=== PATIENT | female | born 1970 | race African-American/Black ===

== ENCOUNTER 2016-11-22 14:16 | Inpatient (IN) | payer MEDICAID ==
[~2016-11-22] VITALS: Ht 170.2 cm; Wt 80.7 kg
[~2016-11-22 14:16] MED LIST: CALC667C PO; DILT180C3 PO; HYDR-523 PO; LOSA25TA3 PO; METO-396 PO; METO50TA5 PO
[2016-11-22 15:29] LABS: BASOPHILS % 0.2 % (0.0-2.0); EOSINOPHILS % 1.8 % (0.0-5.0); HEMATOCRIT. 38.1 % (36.0-48.0); HEMOGLOBIN. 12.5 g/dL (12.0-16.0); LYMPHOCYTES % 9.3 % (20.0-50.0); MEAN CORPUSCULAR VOLUME 100.2 fL (81.0-99.0); MEAN PLATELET VOLUME 8.4 fl (7.4-10.4); MONOCYTES % 10.7 % (2.0-8.0); PLATELET 142 x1000/uL (130-400); RED CELL DISTRIBUTION WIDTH 17.1 % (11.6-14.6)
[2016-11-22 15:33] LABS: CHLORIDE 98 mEq/L (98-107); INR 1.2; PROTHROMBIN TIME 12.5 sec (9.4-11.6)
[2016-11-22 15:36] LABS: CARBON DIOXIDE 21 mEq/L (21-32)
[2016-11-22 15:50] LABS: TROPONIN I 0.85 ng/mL (0.00-0.04)
[2016-11-22] MEDS ORDERED: HYDROCODONE/ACETAMINOPHEN 5/325MG TABLET PO ONE (17:00)
[2016-11-22] MEDS ORDERED: KETOROLAC 30MG/ML VIAL IV ONE (17:45)
[2016-11-22 21:58] VITALS: BP 110/84
[2016-11-22 22:03] VITALS: BP 110/84
[2016-11-22] MEDS ORDERED: DEXTROSE 50% WATER 50ML SYRINGE IV PRN (22:45)
[2016-11-23 00:05] VITALS: BP 112/85
[2016-11-23 04:00] VITALS: BP 111/81
[2016-11-23] MEDS: HYDROCODONE/ACETAMINOPHEN 5/325MG TABLET PO PRN (04:50)
[2016-11-23] MEDS: BLOOD SUGAR DIAGNOSTIC STRIP TEST SCH ×4 (07:40→21:00)
[2016-11-23 08:00] VITALS: BP 110/80
[2016-11-23] MEDS: INSULIN LISPRO 100 UNITS/ML SUBCUT SCH ×4 (08:10→21:00)
[2016-11-23] MEDS: CALCIUM ACETATE 667MG CAPSULE PO SCH ×3 (08:51→18:47)
[2016-11-23] MEDS: LOSARTAN POTASSIUM 25 MG TABLET PO SCH (08:53)
[2016-11-23] MEDS: METOPROLOL TARTRATE 50MG TABLET PO SCH ×2 (08:53→21:00)
[2016-11-23] MEDS: DILTIAZEM HCL 180MG CAPSULE CD 24HR PO SCH (08:53)
[2016-11-23] MEDS: MORPHINE SULFATE 2 MG/ML CPJ (NOT FOR IM USE) IV PRN ×3 (10:07→18:52)
[2016-11-23 12:00] VITALS: BP 113/85
[2016-11-23] MEDS ORDERED: REGADENOSON 0.4 MG/5 ML IV NR (12:45)
[2016-11-23 20:00] VITALS: BP 111/57
[2016-11-23] MEDS: IPRATROPIUM/ALBUTEROL 0.5-3(2.5)MG/3ML NEB HHN PRN (20:38)
[2016-11-23] MEDS ORDERED: RISP0.5T19 PO (21:05)
[2016-11-23] MEDS ORDERED: PROMETHAZINE LIQUID 6.25MG/5ML 118ML PO PRN (21:30)
[2016-11-23] MEDS: RISPERIDONE 0.5MG TABLET PO SCH (22:12)
[2016-11-24] VITALS: BP 113/84
[2016-11-24] MEDS: IPRATROPIUM/ALBUTEROL 0.5-3(2.5)MG/3ML NEB HHN PRN ×2 (00:30→04:42)
[2016-11-24] MEDS: MORPHINE SULFATE 2 MG/ML CPJ (NOT FOR IM USE) IV PRN ×2 (03:53→09:40)
[2016-11-24 04:00] VITALS: BP 115/88
[2016-11-24 06:39] LABS: BASOPHILS % 0.8 % (0.0-2.0); EOSINOPHILS % 4.5 % (0.0-5.0); HEMATOCRIT. 38.1 % (36.0-48.0); HEMOGLOBIN. 12.4 g/dL (12.0-16.0); LYMPHOCYTES % 8.1 % (20.0-50.0); MEAN CORPUSCULAR VOLUME 101.2 fL (81.0-99.0); MEAN PLATELET VOLUME 8.6 fl (7.4-10.4); NEUTROPHILS % 75.6 % (40.0-76.0); PLATELET 119 x1000/uL (130-400); RED BLOOD CELL COUNT 3.76 mill/uL (4.2-5.4); RED CELL DISTRIBUTION WIDTH 17.5 % (11.6-14.6)
[2016-11-24] MEDS: BLOOD SUGAR DIAGNOSTIC STRIP TEST SCH ×4 (07:40→20:41)
[2016-11-24 07:41] LABS: CREATINE KINASE MB FRACTION 9.6 ng/mL (0.5-3.6); TROPONIN I 0.36 ng/mL (0.00-0.04)
[2016-11-24 08:00] VITALS: BP 95/63
[2016-11-24] MEDS: INSULIN LISPRO 100 UNITS/ML SUBCUT SCH ×4 (08:10→20:44)
[2016-11-24] MEDS ORDERED: REGADENOSON 0.4 MG/5 ML IV ONE (08:20)
[2016-11-24] MEDS: LOSARTAN POTASSIUM 25 MG TABLET PO SCH (09:00)
[2016-11-24] MEDS: METOPROLOL TARTRATE 50MG TABLET PO SCH ×2 (09:00→20:41)
[2016-11-24] MEDS: DILTIAZEM HCL 180MG CAPSULE CD 24HR PO SCH (09:00)
[2016-11-24] MEDS: RISPERIDONE 0.5MG TABLET PO SCH ×2 (09:41→16:19)
[2016-11-24] MEDS: CALCIUM ACETATE 667MG CAPSULE PO SCH ×3 (09:41→18:10)
[2016-11-24 12:00] VITALS: BP 116/80
[2016-11-24 14:43] LABS: CLARITY URINE CLEAR (CLEAR); COLOR URINE YELLOW (YELLOW); GLUCOSE URINE TRACE (NEGATIVE); KETONES URINE NEGATIVE (NEGATIVE); LEUKOCYTE ESTERASE URINE NEGATIVE (NEGATIVE); NITRITE URINE NEGATIVE (NEGATIVE); OCCULT BLOOD URINE NEGATIVE (NEGATIVE); PH URINE >=9.0 (4.5-8.0); PROTEIN URINE NEGATIVE (NEGATIVE); SPECIFIC GRAVITY URINE 1.007 (1.005-1.030); UROBILINOGEN URINE 0.2 E.U./dL (0.2-1.0)
[2016-11-24 15:15] LABS: *AMPHETAMINES SCREEN URINE NEGATIVE (NEGATIVE); *BARBITURATES SCREEN URINE NEGATIVE (NEGATIVE); *BENZODIAZEPINES SCREEN URINE NEGATIVE (NEGATIVE); *COCAINE SCREEN URINE NEGATIVE (NEGATIVE); CANNABINOID URINE SCREEN NEGATIVE (NEGATIVE); METHADONE URINE SCREEN NEGATIVE (NEGATIVE); OPIATES URINE SCREEN NEGATIVE (NEGATIVE); PHENCYCLIDINE URINE SCREEN NEGATIVE (NEGATIVE)
[2016-11-24 16:00] VITALS: BP 95/58
[2016-11-24] MEDS: HYDROCODONE/ACETAMINOPHEN 5/325MG TABLET PO PRN ×2 (16:18→22:35)
[2016-11-24 20:00] VITALS: BP 95/66
[2016-11-24] MEDS: CYCLOBENZAPRINE 10MG TABLET PO PRN (23:12)
[2016-11-25] VITALS (7 sets, daily range): BP systolic 86–123; BP diastolic 48–82
[2016-11-25] MEDS: BLOOD SUGAR DIAGNOSTIC STRIP TEST SCH ×2 (06:59→21:45)
[2016-11-25] MEDS: METOPROLOL TARTRATE 50MG TABLET PO SCH ×2 (09:22→21:00)
[2016-11-25] MEDS: LOSARTAN POTASSIUM 25 MG TABLET PO SCH (09:22)
[2016-11-25] MEDS: CALCIUM ACETATE 667MG CAPSULE PO SCH ×2 (09:25→15:38)
[2016-11-25] MEDS: DILTIAZEM HCL 180MG CAPSULE CD 24HR PO SCH (09:30)
[2016-11-25] MEDS: MORPHINE SULFATE 2 MG/ML CPJ (NOT FOR IM USE) IV PRN ×2 (09:30→15:39)
[2016-11-25] MEDS: RISPERIDONE 0.5MG TABLET PO SCH ×2 (09:38→17:09)
[2016-11-25] MEDS: PROMETHAZINE LIQUID 6.25MG/5ML 118ML PO SCH ×2 (16:00→22:13)
[2016-11-25] MEDS: INSULIN LISPRO 100 UNITS/ML SUBCUT SCH (21:00)
[2016-11-26] VITALS (13 sets, daily range): BP systolic 72–101; BP diastolic 45–73
[2016-11-26] MEDS: PROMETHAZINE LIQUID 6.25MG/5ML 118ML PO SCH ×4 (05:14→22:06)
[2016-11-26] MEDS: BLOOD SUGAR DIAGNOSTIC STRIP TEST SCH ×4 (05:25→20:43)
[2016-11-26] MEDS ORDERED: SODIUM CHLORIDE 0.9% 500 ML IV NR (06:00)
[2016-11-26 06:12] LABS: HEMATOCRIT. 39.6 % (36.0-48.0); HEMOGLOBIN. 12.7 g/dL (12.0-16.0); LYMPHOCYTES % 12.5 % (20.0-50.0); MEAN CORPUSCULAR HEMOGLOBIN 32.5 pg (28.0-32.0); MEAN CORPUSCULAR VOLUME 101.2 fL (81.0-99.0); MEAN PLATELET VOLUME 9.1 fl (7.4-10.4); MONOCYTES % 11.1 % (2.0-8.0); NEUTROPHILS % 69.4 % (40.0-76.0); PLATELET 120 x1000/uL (130-400); RED BLOOD CELL COUNT 3.91 mill/uL (4.2-5.4); RED CELL DISTRIBUTION WIDTH 17.5 % (11.6-14.6)
[2016-11-26] MEDS ORDERED: MIDODRINE HCL 5MG TABLET PO SCH (08:00)
[2016-11-26] MEDS ORDERED: SODIUM CHLORIDE 0.9% 500 ML IV SCH (08:00)
[2016-11-26] MEDS: INSULIN LISPRO 100 UNITS/ML SUBCUT SCH ×4 (08:10→20:43)
[2016-11-26] MEDS: RISPERIDONE 0.5MG TABLET PO SCH ×2 (08:53→16:04)
[2016-11-26] MEDS: CALCIUM ACETATE 667MG CAPSULE PO SCH ×4 (08:53→17:24)
[2016-11-26] MEDS: METOPROLOL TARTRATE 50MG TABLET PO SCH (08:55)
[2016-11-26] MEDS: DILTIAZEM HCL 180MG CAPSULE CD 24HR PO SCH (08:56)
[2016-11-26] MEDS: LOSARTAN POTASSIUM 25 MG TABLET PO SCH (08:56)
[2016-11-26] MEDS: MIDODRINE HCL 5MG TABLET PO SCH ×2 (13:00→16:03)
[2016-11-26] MEDS ORDERED: HEPARIN SODIUM 1,000 UNIT/1ML VIAL IV SCH (14:45)
[2016-11-26] MEDS: HYDROCODONE/ACETAMINOPHEN 5/325MG TABLET PO PRN (20:51)
[2016-11-27] VITALS (7 sets, daily range): BP systolic 81–102; BP diastolic 56–72
[2016-11-27] MEDS: PROMETHAZINE LIQUID 6.25MG/5ML 118ML PO SCH ×4 (05:21→22:00)
[2016-11-27] MEDS: BLOOD SUGAR DIAGNOSTIC STRIP TEST SCH ×4 (05:24→21:00)
[2016-11-27 05:56] LABS: BASOPHILS % 0.7 % (0.0-2.0); EOSINOPHILS % 4.9 % (0.0-5.0); HEMATOCRIT. 39.9 % (36.0-48.0); LYMPHOCYTES % 11.3 % (20.0-50.0); MEAN CORPUSCULAR HEMOGLOBIN 33.1 pg (28.0-32.0); MEAN CORPUSCULAR VOLUME 101.6 fL (81.0-99.0); MEAN PLATELET VOLUME 8.5 fl (7.4-10.4); MONOCYTES % 13.7 % (2.0-8.0); NEUTROPHILS % 69.4 % (40.0-76.0); PLATELET 97 x1000/uL (130-400); RED BLOOD CELL COUNT 3.93 mill/uL (4.2-5.4); RED CELL DISTRIBUTION WIDTH 17.3 % (11.6-14.6)
[2016-11-27] MEDS: INSULIN LISPRO 100 UNITS/ML SUBCUT SCH ×4 (08:10→21:00)
[2016-11-27] MEDS: MIDODRINE HCL 5MG TABLET PO SCH ×3 (08:38→17:35)
[2016-11-27] MEDS: RISPERIDONE 0.5MG TABLET PO SCH ×2 (08:38→17:34)
[2016-11-27] MEDS: CALCIUM ACETATE 667MG CAPSULE PO SCH ×3 (08:39→17:34)
[2016-11-27] MEDS: HYDROCODONE/ACETAMINOPHEN 5/325MG TABLET PO PRN (15:42)
[2016-11-27] MEDS ORDERED: DIGOXIN 500MCG/2ML AMP IV NR (19:45)
[2016-11-27] MEDS: SODIUM CHLORIDE 0.9% 250 ML IV NR ×2 (19:52→22:15)
[2016-11-27] MEDS: IPRATROPIUM/ALBUTEROL 0.5-3(2.5)MG/3ML NEB HHN PRN (21:18)
[2016-11-28] VITALS (10 sets, daily range): BP systolic 92–129; BP diastolic 58–75
[2016-11-28 06:00] LABS: HEMATOCRIT. 39.9 % (36.0-48.0); HEMOGLOBIN. 12.9 g/dL (12.0-16.0); MEAN CORPUSCULAR HEMOGLOBIN 32.9 pg (28.0-32.0); MEAN CORPUSCULAR VOLUME 101.3 fL (81.0-99.0); MEAN PLATELET VOLUME 9.2 fl (7.4-10.4); PLATELET 111 x1000/uL (130-400); RED BLOOD CELL COUNT 3.94 mill/uL (4.2-5.4); RED CELL DISTRIBUTION WIDTH 17.3 % (11.6-14.6)
[2016-11-28] MEDS: BLOOD SUGAR DIAGNOSTIC STRIP TEST SCH ×2 (07:26→11:55)
[2016-11-28] MEDS: INSULIN LISPRO 100 UNITS/ML SUBCUT SCH ×2 (07:26→11:55)
[2016-11-28] MEDS: MIDODRINE HCL 5MG TABLET PO SCH ×3 (08:54→16:48)
[2016-11-28] MEDS: CYCLOBENZAPRINE 10MG TABLET PO PRN (08:54)
[2016-11-28] MEDS: RISPERIDONE 0.5MG TABLET PO SCH ×2 (08:54→16:48)
[2016-11-28] MEDS: PROMETHAZINE LIQUID 6.25MG/5ML 118ML PO SCH ×2 (08:56→16:48)
[2016-11-28] MEDS: CALCIUM ACETATE 667MG CAPSULE PO SCH ×3 (08:59→16:49)
[2016-11-28] MEDS: LIDOCAINE 5% PATCH TOP SCH (11:28)
[2016-11-28] MEDS: IPRATROPIUM/ALBUTEROL 0.5-3(2.5)MG/3ML NEB HHN PRN ×2 (12:04→18:13)
[2016-11-28] MEDS: HYDROCODONE/ACETAMINOPHEN 5/325MG TABLET PO PRN ×2 (13:40→17:48)
[2016-11-28 16:49] LABS: HCG SCREEN NEGATIVE
[2016-11-28 23:08] LABS: NUCLEATED RED BLOOD CELLS 2 /100 WBC; PLATELET ESTIMATE SLIGHTLY DECREASED
[2016-11-29] VITALS: BP 99/66
[2016-11-29] MEDS: PROMETHAZINE LIQUID 6.25MG/5ML 118ML PO SCH ×5 (00:10→23:10)
[2016-11-29 04:00] VITALS: BP 106/74
[2016-11-29 08:10] VITALS: BP 99/63
[2016-11-29] MEDS: RISPERIDONE 0.5MG TABLET PO SCH ×2 (08:17→17:43)
[2016-11-29] MEDS: MIDODRINE HCL 5MG TABLET PO SCH ×3 (08:18→17:43)
[2016-11-29] MEDS: LIDOCAINE 5% PATCH TOP SCH (08:18)
[2016-11-29] MEDS: CALCIUM ACETATE 667MG CAPSULE PO SCH ×3 (08:18→17:43)
[2016-11-29 12:00] VITALS: BP 106/77
[2016-11-29] MEDS: HYDROCODONE/ACETAMINOPHEN 5/325MG TABLET PO PRN ×2 (13:41→20:36)
[2016-11-29 16:00] VITALS: BP 110/71
[2016-11-29] MEDS: IPRATROPIUM/ALBUTEROL 0.5-3(2.5)MG/3ML NEB HHN PRN (18:03)
[2016-11-29 20:13] VITALS: BP_SYST 114; BP_SYST 118; BP_SYST 96; BP_DIAS 61; BP_DIAS 82; BP_DIAS 85
[2016-11-30] VITALS: BP 94/65
[2016-11-30 04:00] VITALS: BP 118/84
[2016-11-30] MEDS: PROMETHAZINE LIQUID 6.25MG/5ML 118ML PO SCH ×3 (05:49→17:28)
[2016-11-30 06:26] LABS: HEMATOCRIT. 38.4 % (36.0-48.0); HEMOGLOBIN. 12.5 g/dL (12.0-16.0); MEAN CORPUSCULAR HEMOGLOBIN 33.1 pg (28.0-32.0); MEAN CORPUSCULAR VOLUME 101.9 fL (81.0-99.0); MEAN PLATELET VOLUME 9.3 fl (7.4-10.4); PLATELET 106 x1000/uL (130-400); RED BLOOD CELL COUNT 3.77 mill/uL (4.2-5.4); RED CELL DISTRIBUTION WIDTH 17.2 % (11.6-14.6)
[2016-11-30 08:00] VITALS: BP_SYST 102; BP_SYST 116; BP_SYST 120; BP_DIAS 67; BP_DIAS 86; BP_DIAS 90
[2016-11-30] MEDS: CYCLOBENZAPRINE 10MG TABLET PO PRN (09:05)
[2016-11-30] MEDS: RISPERIDONE 0.5MG TABLET PO SCH ×2 (09:05→17:27)
[2016-11-30] MEDS: CALCIUM ACETATE 667MG CAPSULE PO SCH ×3 (09:05→17:27)
[2016-11-30] MEDS: MIDODRINE HCL 5MG TABLET PO SCH ×3 (09:06→17:28)
[2016-11-30] MEDS: LIDOCAINE 5% PATCH TOP SCH (09:10)
[2016-11-30] MEDS: HYDROCODONE/ACETAMINOPHEN 5/325MG TABLET PO PRN (09:17)
[2016-11-30 12:00] VITALS: BP 121/90
[2016-11-30] MEDS: MORPHINE SULFATE 2 MG/ML CPJ (NOT FOR IM USE) IV PRN ×2 (12:56→18:21)
[2016-11-30 16:00] VITALS: BP 103/74
[2016-11-30 20:00] VITALS: BP 119/82
[2016-11-30 22:20] LABS: PLATELET ESTIMATE DECREASED
[2016-12-01] VITALS: BP 113/78
[2016-12-01] MEDS: PROMETHAZINE LIQUID 6.25MG/5ML 118ML PO SCH ×5 (00:06→23:43)
[2016-12-01] MEDS: IPRATROPIUM/ALBUTEROL 0.5-3(2.5)MG/3ML NEB HHN PRN (00:25)
[2016-12-01] MEDS: MORPHINE SULFATE 2 MG/ML CPJ (NOT FOR IM USE) IV PRN ×2 (00:35→06:35)
[2016-12-01 04:00] VITALS: BP 108/85
[2016-12-01 05:38] LABS: HEMATOCRIT. 41.3 % (36.0-48.0); HEMOGLOBIN. 13.3 g/dL (12.0-16.0); MEAN CORPUSCULAR HEMOGLOBIN 32.8 pg (28.0-32.0); MEAN CORPUSCULAR VOLUME 101.6 fL (81.0-99.0); MEAN PLATELET VOLUME 8.5 fl (7.4-10.4); PLATELET 115 x1000/uL (130-400); RED BLOOD CELL COUNT 4.06 mill/uL (4.2-5.4); RED CELL DISTRIBUTION WIDTH 16.9 % (11.6-14.6)
[2016-12-01 08:00] VITALS: BP 102/84
[2016-12-01] MEDS: LIDOCAINE 5% PATCH TOP SCH ×2 (09:00→09:10)
[2016-12-01] MEDS: MIDODRINE HCL 5MG TABLET PO SCH ×3 (09:09→17:58)
[2016-12-01] MEDS: RISPERIDONE 0.5MG TABLET PO SCH ×2 (09:09→17:58)
[2016-12-01] MEDS: CALCIUM ACETATE 667MG CAPSULE PO SCH ×3 (09:09→17:58)
[2016-12-01] MEDS ORDERED: DIGOXIN 500MCG/2ML AMP IV NR (11:25)
[2016-12-01] MEDS: HYDROCODONE/ACETAMINOPHEN 5/325MG TABLET PO PRN ×2 (11:46→19:00)
[2016-12-01 12:00] VITALS: BP 105/65
[2016-12-01 13:20] LABS: PLATELET ESTIMATE SLIGHTLY DECREASED
[2016-12-01] MEDS: DILTIAZEM HCL 60MG TABLET PO SCH ×2 (14:00→20:57)
[2016-12-01 20:00] VITALS: BP 122/77
[2016-12-01 20:20] VITALS: BP_SYST 105; BP_SYST 99; BP_DIAS 57; BP_DIAS 69
[2016-12-02 00:05] VITALS: BP 105/74
[2016-12-02 04:00] VITALS: BP 115/73
[2016-12-02] MEDS: DILTIAZEM HCL 60MG TABLET PO SCH (05:25)
[2016-12-02] MEDS: PROMETHAZINE LIQUID 6.25MG/5ML 118ML PO SCH ×2 (05:26→12:46)
[2016-12-02] MEDS: HYDROCODONE/ACETAMINOPHEN 5/325MG TABLET PO PRN (05:36)
[2016-12-02 06:28] LABS: HEMATOCRIT. 35.8 % (36.0-48.0); HEMOGLOBIN. 11.8 g/dL (12.0-16.0); MEAN CORPUSCULAR HEMOGLOBIN 32.9 pg (28.0-32.0); MEAN CORPUSCULAR VOLUME 99.6 fL (81.0-99.0); MEAN PLATELET VOLUME 9.3 fl (7.4-10.4); PLATELET 124 x1000/uL (130-400); RED BLOOD CELL COUNT 3.59 mill/uL (4.2-5.4); RED CELL DISTRIBUTION WIDTH 16.7 % (11.6-14.6)
[2016-12-02 07:12] LABS: CHLAMYDIA TRACHOMATIS NAA Negative (Negative); NEISSERIA GONORRHOEAE NAA Negative (Negative)
[2016-12-02 08:41] VITALS: BP 92/57
[2016-12-02] MEDS: CALCIUM ACETATE 667MG CAPSULE PO SCH ×2 (08:42→12:46)
[2016-12-02] MEDS: RISPERIDONE 0.5MG TABLET PO SCH (08:43)
[2016-12-02] MEDS: MIDODRINE HCL 5MG TABLET PO SCH ×2 (08:43→12:46)
[2016-12-02] MEDS: LIDOCAINE 5% PATCH TOP SCH (08:43)
[2016-12-02] MEDS ORDERED: CYCL10TA7 PO (11:24)
[2016-12-02] MEDS ORDERED: LIDO700A30 TOP (11:24)
[2016-12-02] MEDS ORDERED: RISP05 PO (11:24)
[2016-12-02] MEDS ORDERED: [UNRECOGNIZED DRUG - OTHER] PO (11:24)
[2016-12-02] MEDS ORDERED: CALC667C PO (11:24)
[2016-12-02] MEDS ORDERED: MIDO5TAB PO (11:24)
[2016-12-02] MEDS ORDERED: DILT120C11 PO (11:24)
[2016-12-02 12:00] VITALS: BP 113/65
[2016-12-02 12:09] VITALS: BP 113/65
[2016-12-02] MEDS: CYCLOBENZAPRINE 10MG TABLET PO PRN (13:29)
[2016-12-02 13:57] LABS: PLATELET ESTIMATE SLIGHTLY DECREASED
== END 2016-12-02 13:50 | disposition home or self-care (01) | DRG 190 ==
LOC: ER 15:34 → 7WST 17:06 → ENRESERV 18:40
PROVIDERS: ADMIT Internal Medicine; ATTEND Internal Medicine
PROC: 5A1D60Z (ICD-10-PCS; principal; 2016-11-23)
DX: I21.4 Non-ST elevation (NSTEMI) myocardial infarction (principal); J96.00 Acute respiratory failure, unspecified whether with hypoxia or hypercapnia; I50.33 Acute on chronic diastolic (congestive) heart failure; N17.9 Acute kidney failure, unspecified; I95.9 Hypotension, unspecified; E11.22 Type 2 diabetes mellitus with diabetic chronic kidney disease; N18.6 End stage renal disease; I27.2 Other secondary pulmonary hypertension; I13.2 Hypertensive heart and chronic kidney disease with heart failure and with stage 5 chronic kidney disease, or end stage renal disease; I47.1 Supraventricular tachycardia; E87.5 Hyperkalemia; E66.9 Obesity, unspecified; M51.36 Other intervertebral disc degeneration, lumbar region; E78.00 Pure hypercholesterolemia, unspecified; F17.210 Nicotine dependence, cigarettes, uncomplicated; N89.8 Other specified noninflammatory disorders of vagina; F31.9 Bipolar disorder, unspecified; Z99.2 Dependence on renal dialysis; Z79.899 Other long term (current) drug therapy; Z90.49 Acquired absence of other specified parts of digestive tract; Z68.27 Body mass index [BMI] 27.0-27.9, adult; Z71.6 Tobacco abuse counseling
CPT/HCPCS: 36415; 71010; 72148; 78452; 78582; 80048; 80053; 80061; 80305; 81001; 82550; 82553; 82962; 83690; 83735; 83880; 84443; 84484; 84703; 85025; 85379; 85610; 85730; 86140; 87070; 87081; 87086; 87491; 87591; 93005; 93017; 93306; 93970; 94640; 94664; 96374; 97110; 97116; 97162; 99285; A9500; A9558; J1160; J1644; J1885; J2270; J2785; J7030; J7040; J7620; Q0169

== ENCOUNTER 2016-12-17 09:56 | Inpatient (IN) | payer MEDICAID ==
[~2016-12-17] VITALS: Ht 167.6 cm; Wt 80.3 kg
[~2016-12-17 09:56] MED LIST changes: +CYCL10TA7 PO; +DILT120C11 PO; -DILT180C3 PO; +LIDO700A30 TOP; -LOSA25TA3 PO; -METO-396 PO; -METO50TA5 PO; +MIDO5TAB PO; +RISP05 PO; +[UNRECOGNIZED DRUG - OTHER] PO
[2016-12-17 10:41] LABS: BASOPHILS % 0.8 % (0.0-2.0); EOSINOPHILS % 4.4 % (0.0-5.0); HEMATOCRIT. 37.4 % (36.0-48.0); HEMOGLOBIN. 12.2 g/dL (12.0-16.0); LYMPHOCYTES % 25.9 % (20.0-50.0); MEAN CORPUSCULAR HEMOGLOBIN 32.3 pg (28.0-32.0); MEAN CORPUSCULAR VOLUME 99.1 fL (81.0-99.0); MEAN PLATELET VOLUME 7.5 fl (7.4-10.4); MONOCYTES % 12.9 % (2.0-8.0); PLATELET 114 x1000/uL (130-400); RED BLOOD CELL COUNT 3.78 mill/uL (4.2-5.4); RED CELL DISTRIBUTION WIDTH 17.1 % (11.6-14.6)
[2016-12-17 10:48] LABS: INR 1.1
[2016-12-17 10:58] LABS: CARBON DIOXIDE 26 mEq/L (21-32); CHLORIDE 100 mEq/L (98-107); TROPONIN I 0.06 ng/mL (0.00-0.04)
[2016-12-17 11:53] LABS: HCG SCREEN NEGATIVE
[2016-12-17] MEDS ORDERED: ACETAMINOPHEN WITH CODEINE 300/30MG TABLET PO ONE (12:00)
[2016-12-17] MEDS ORDERED: IBUPROFEN 600MG TABLET PO PRN (12:30)
[2016-12-17] MEDS ORDERED: ACETAMINOPHEN 325MG TABLET PO PRN ×2 (12:30→17:30)
[2016-12-17 15:25] VITALS: BP 130/100
[2016-12-17 15:29] VITALS: BP 130/100
[2016-12-17] MEDS: MORPHINE SULFATE 4 MG/ML CPJ (NOT FOR IM USE) IV PRN ×2 (15:48→23:54)
[2016-12-17 16:00] VITALS: BP 124/94
[2016-12-17] MEDS ORDERED: CYCLOBENZAPRINE 10MG TABLET PO PRN (17:30)
[2016-12-17] MEDS ORDERED: ONDANSETRON HCL 4MG/2ML VIAL IV PRN (17:30)
[2016-12-17] MEDS: DILTIAZEM HCL 120MG CAPSULE SR 12HR PO SCH (18:36)
[2016-12-17] MEDS: CALCIUM ACETATE 667MG CAPSULE PO SCH (18:36)
[2016-12-17] MEDS ORDERED: DEXTROSE 50% WATER 50ML SYRINGE IV PRN (18:45)
[2016-12-17] MEDS ORDERED: DIPHENHYDRAMINE 50MG/ML VIAL IV NR (18:45)
[2016-12-17] MEDS ORDERED: PROMETHAZINE LIQUID 6.25MG/5ML 118ML PO PRN (19:00)
[2016-12-17 20:00] VITALS: BP 117/90
[2016-12-17] MEDS: DIPHENHYDRAMINE 50MG/ML VIAL IV PRN (20:34)
[2016-12-17] MEDS: INSULIN LISPRO 100 UNITS/ML SUBCUT SCH (20:40)
[2016-12-17] MEDS: BLOOD SUGAR DIAGNOSTIC STRIP TEST SCH (20:40)
[2016-12-18 00:22] VITALS: BP 124/97
[2016-12-18 04:00] VITALS: BP 123/91
[2016-12-18 05:41] LABS: BASOPHILS % 1.1 % (0.0-2.0); EOSINOPHILS % 6.2 % (0.0-5.0); HEMATOCRIT. 37.6 % (36.0-48.0); HEMOGLOBIN. 12.2 g/dL (12.0-16.0); LYMPHOCYTES % 23.7 % (20.0-50.0); MEAN CORPUSCULAR HEMOGLOBIN 32.7 pg (28.0-32.0); MEAN CORPUSCULAR VOLUME 100.8 fL (81.0-99.0); MEAN PLATELET VOLUME 8.7 fl (7.4-10.4); PLATELET 120 x1000/uL (130-400); RED BLOOD CELL COUNT 3.73 mill/uL (4.2-5.4); RED CELL DISTRIBUTION WIDTH 17.3 % (11.6-14.6)
[2016-12-18] MEDS: BLOOD SUGAR DIAGNOSTIC STRIP TEST SCH ×4 (07:02→21:00)
[2016-12-18] MEDS: INSULIN LISPRO 100 UNITS/ML SUBCUT SCH ×4 (07:50→21:00)
[2016-12-18 08:00] VITALS: BP 111/83
[2016-12-18] MEDS: LIDOCAINE 5% PATCH TOP SCH (09:00)
[2016-12-18] MEDS: DILTIAZEM HCL 120MG CAPSULE SR 12HR PO SCH (09:00)
[2016-12-18] MEDS: MIDODRINE HCL 5MG TABLET PO SCH ×3 (09:15→18:21)
[2016-12-18] MEDS: RISPERIDONE 0.5MG TABLET PO SCH ×2 (09:15→18:21)
[2016-12-18] MEDS: CALCIUM ACETATE 667MG CAPSULE PO SCH ×3 (09:16→18:21)
[2016-12-18] MEDS: MORPHINE SULFATE 4 MG/ML CPJ (NOT FOR IM USE) IV PRN ×2 (11:39→21:36)
[2016-12-18 12:00] VITALS: BP 109/58
[2016-12-18] MEDS: ALBUTEROL (0.083%) 2.5MG/3ML NEB HHN SCH ×2 (16:51→20:03)
[2016-12-18 18:02] VITALS: BP 119/79
[2016-12-18] MEDS: DIPHENHYDRAMINE 50MG/ML VIAL IV PRN (18:25)
[2016-12-18 20:00] VITALS: BP 123/80
[2016-12-18] MEDS: METHYLPREDNISOLONE SOD SUCC 125 MG/2 ML VIAL IV SCH (21:36)
[2016-12-19] VITALS: BP 126/83
[2016-12-19] MEDS: ALBUTEROL (0.083%) 2.5MG/3ML NEB HHN SCH ×6 (00:08→20:55)
[2016-12-19 04:00] VITALS: BP 111/75
[2016-12-19] MEDS: METHYLPREDNISOLONE SOD SUCC 125 MG/2 ML VIAL IV SCH ×3 (06:00→17:57)
[2016-12-19] MEDS: BLOOD SUGAR DIAGNOSTIC STRIP TEST SCH ×4 (06:39→21:30)
[2016-12-19 07:45] LABS: BASOPHILS % 0.8 % (0.0-2.0); EOSINOPHILS % 6.6 % (0.0-5.0); HEMATOCRIT. 34.5 % (36.0-48.0); HEMOGLOBIN. 11.1 g/dL (12.0-16.0); MEAN CORPUSCULAR HEMOGLOBIN 32.6 pg (28.0-32.0); MEAN CORPUSCULAR VOLUME 101.3 fL (81.0-99.0); MEAN PLATELET VOLUME 8.8 fl (7.4-10.4); MONOCYTES % 13.5 % (2.0-8.0); NEUTROPHILS % 62.1 % (40.0-76.0); PLATELET 92 x1000/uL (130-400); RED CELL DISTRIBUTION WIDTH 16.8 % (11.6-14.6)
[2016-12-19] MEDS: INSULIN LISPRO 100 UNITS/ML SUBCUT SCH ×4 (07:50→22:01)
[2016-12-19 08:00] VITALS: BP 112/79
[2016-12-19] MEDS: LIDOCAINE 5% PATCH TOP SCH (09:00)
[2016-12-19] MEDS: DILTIAZEM HCL 120MG CAPSULE SR 12HR PO SCH (09:29)
[2016-12-19] MEDS: RISPERIDONE 0.5MG TABLET PO SCH ×2 (09:29→17:53)
[2016-12-19] MEDS: MIDODRINE HCL 5MG TABLET PO SCH ×3 (09:29→17:57)
[2016-12-19] MEDS: CALCIUM ACETATE 667MG CAPSULE PO SCH ×3 (09:31→17:54)
[2016-12-19] MEDS: MORPHINE SULFATE 4 MG/ML CPJ (NOT FOR IM USE) IV PRN ×3 (09:36→21:50)
[2016-12-19 12:00] VITALS: BP 126/93
[2016-12-19] MEDS: DIPHENHYDRAMINE 50MG/ML VIAL IV PRN (15:15)
[2016-12-19 16:00] VITALS: BP 108/72
[2016-12-19 20:00] VITALS: BP 121/79
[2016-12-20] VITALS (7 sets, daily range): BP systolic 104–128; BP diastolic 71–87
[2016-12-20] MEDS: ALBUTEROL (0.083%) 2.5MG/3ML NEB HHN SCH ×7 (00:43→20:40)
[2016-12-20] MEDS: METHYLPREDNISOLONE SOD SUCC 125 MG/2 ML VIAL IV SCH ×3 (03:07→18:51)
[2016-12-20] MEDS: DIPHENHYDRAMINE 50MG/ML VIAL IV PRN ×2 (03:08→11:40)
[2016-12-20] MEDS: BLOOD SUGAR DIAGNOSTIC STRIP TEST SCH ×4 (06:47→21:30)
[2016-12-20 06:54] LABS: HEMOGLOBIN. 11.5 g/dL (12.0-16.0); MEAN CORPUSCULAR HEMOGLOBIN 32.3 pg (28.0-32.0); MEAN CORPUSCULAR VOLUME 101.4 fL (81.0-99.0); MEAN PLATELET VOLUME 8.8 fl (7.4-10.4); PLATELET 97 x1000/uL (130-400); RED BLOOD CELL COUNT 3.55 mill/uL (4.2-5.4); RED CELL DISTRIBUTION WIDTH 16.7 % (11.6-14.6)
[2016-12-20] MEDS: INSULIN LISPRO 100 UNITS/ML SUBCUT SCH ×4 (08:22→21:33)
[2016-12-20] MEDS: CALCIUM ACETATE 667MG CAPSULE PO SCH ×3 (08:32→17:33)
[2016-12-20] MEDS: MIDODRINE HCL 5MG TABLET PO SCH ×3 (08:32→17:29)
[2016-12-20] MEDS: RISPERIDONE 0.5MG TABLET PO SCH ×2 (08:32→17:07)
[2016-12-20] MEDS: DILTIAZEM HCL 120MG CAPSULE SR 12HR PO SCH (08:33)
[2016-12-20] MEDS: LIDOCAINE 5% PATCH TOP SCH (08:35)
[2016-12-20] MEDS: MORPHINE SULFATE 4 MG/ML CPJ (NOT FOR IM USE) IV PRN ×3 (08:51→21:20)
[2016-12-20 13:15] LABS: PLATELET ESTIMATE DECREASED
[2016-12-20] MEDS ORDERED: AZITHROMYCIN 500 MG TABLET PO SCH (14:30)
[2016-12-20 16:31] LABS: BG BASE EXCESS -0.6 mmol/L (-2.0-2.0); BG CARBOXYHEMOGLOBIN 0.3 % (0.5-1.5); BG DEOXYHEMOGLOBIN 16.8 % (0.0-5.0); BG HCO3 ACT 27.8 mmol/L (22.0-26.0); BG OXYGEN SATURATION 83.1 % (92.0-98.5); BG OXYHEMOGLOBIN 82.9 % (94.0-97.0); BG PCO2 63.7 mmHg (35.0-45.0); BG PH 7.257 (7.350-7.450); BG PO2 48.4 mmHg (75.0-100.0); BG SAMPLE SITE RIGHT RADIAL; BG TOTAL HEMOGLOBIN 12.3 g/dL (12.0-18.0); BG VENT MODE ROOM AIR
[2016-12-21] MEDS: ALBUTEROL (0.083%) 2.5MG/3ML NEB HHN SCH ×5 (01:17→21:35)
[2016-12-21] MEDS: METHYLPREDNISOLONE SOD SUCC 125 MG/2 ML VIAL IV SCH ×3 (02:04→17:01)
[2016-12-21 04:00] VITALS: BP 125/82
[2016-12-21] MEDS: MORPHINE SULFATE 4 MG/ML CPJ (NOT FOR IM USE) IV PRN ×2 (04:29→10:33)
[2016-12-21 06:06] LABS: HEMATOCRIT. 36.2 % (36.0-48.0); HEMOGLOBIN. 11.7 g/dL (12.0-16.0); MEAN CORPUSCULAR HEMOGLOBIN 32.8 pg (28.0-32.0); MEAN CORPUSCULAR VOLUME 101.6 fL (81.0-99.0); PLATELET 104 x1000/uL (130-400); RED BLOOD CELL COUNT 3.57 mill/uL (4.2-5.4)
[2016-12-21] MEDS: BLOOD SUGAR DIAGNOSTIC STRIP TEST SCH ×4 (06:38→21:28)
[2016-12-21] MEDS: CALCIUM ACETATE 667MG CAPSULE PO SCH ×3 (06:42→16:57)
[2016-12-21] MEDS: INSULIN LISPRO 100 UNITS/ML SUBCUT SCH ×4 (07:50→21:39)
[2016-12-21 08:00] VITALS: BP 115/85
[2016-12-21] MEDS: LIDOCAINE 5% PATCH TOP SCH ×2 (09:00→09:22)
[2016-12-21] MEDS: RISPERIDONE 0.5MG TABLET PO SCH ×2 (09:21→16:57)
[2016-12-21] MEDS: MIDODRINE HCL 5MG TABLET PO SCH ×3 (09:22→16:57)
[2016-12-21] MEDS: DILTIAZEM HCL 120MG CAPSULE SR 12HR PO SCH (09:22)
[2016-12-21] MEDS: AZITHROMYCIN 250 MG TABLET PO SCH (09:22)
[2016-12-21] MEDS ORDERED: SODIUM POLYSTYRENE SULFONATE 15 G/60 ML BOT PO SCH (09:30)
[2016-12-21] MEDS: DIPHENHYDRAMINE 50MG/ML VIAL IV PRN (10:33)
[2016-12-21] MEDS ORDERED: LIDOCAINE HCL/PF 1% 2ML VIAL ONE (11:44)
[2016-12-21 12:00] VITALS: BP 126/90
[2016-12-21] MEDS: IPRATROPIUM/ALBUTEROL 0.5-3(2.5)MG/3ML NEB HHN SCH (12:00)
[2016-12-21 12:35] LABS: BG BASE EXCESS -6.6 mmol/L (-2.0-2.0); BG CARBOXYHEMOGLOBIN 0.3 % (0.5-1.5); BG DEOXYHEMOGLOBIN 2.7 % (0.0-5.0); BG FRACTION INSPIRED OXYGEN 30; BG HCO3 ACT 22.5 mmol/L (22.0-26.0); BG METHEMOGLOBIN 0.3 % (0.0-1.5); BG OXYGEN SATURATION 97.3 % (92.0-98.5); BG OXYHEMOGLOBIN 96.7 % (94.0-97.0); BG PCO2 62.9 mmHg (35.0-45.0); BG PH 7.172 (7.350-7.450); BG PO2 110.5 mmHg (75.0-100.0); BG SAMPLE SITE RIGHT RADIAL; BG TOTAL HEMOGLOBIN 12.2 g/dL (12.0-18.0); BG VENT MODE NASAL CANNULA
[2016-12-21] MEDS: HYDROMORPHONE HCL/PF 2MG/ML CPJ IV PRN ×2 (15:55→21:39)
[2016-12-21 16:00] VITALS: BP 130/99
[2016-12-21 17:05] LABS: PLATELET ESTIMATE DECREASED
[2016-12-21 20:00] VITALS: BP 141/87
[2016-12-22] VITALS: BP 140/97
[2016-12-22] MEDS: ALBUTEROL (0.083%) 2.5MG/3ML NEB HHN SCH ×3 (00:58→08:00)
[2016-12-22] MEDS: METHYLPREDNISOLONE SOD SUCC 125 MG/2 ML VIAL IV SCH ×3 (02:46→17:28)
[2016-12-22] MEDS: HYDROMORPHONE HCL/PF 2MG/ML CPJ IV PRN ×2 (03:37→09:20)
[2016-12-22 04:00] VITALS: BP 138/99
[2016-12-22] MEDS ORDERED: LIDOCAINE HCL/PF 1% 2ML VIAL ONE (05:00)
[2016-12-22] MEDS: BLOOD SUGAR DIAGNOSTIC STRIP TEST SCH ×4 (06:31→20:59)
[2016-12-22 07:32] LABS: HEMATOCRIT. 36.9 % (36.0-48.0); HEMOGLOBIN. 11.8 g/dL (12.0-16.0); MEAN CORPUSCULAR HEMOGLOBIN 32.3 pg (28.0-32.0); MEAN CORPUSCULAR VOLUME 100.9 fL (81.0-99.0); MEAN PLATELET VOLUME 8.9 fl (7.4-10.4); PLATELET 124 x1000/uL (130-400); RED BLOOD CELL COUNT 3.66 mill/uL (4.2-5.4); RED CELL DISTRIBUTION WIDTH 16.5 % (11.6-14.6)
[2016-12-22] MEDS: INSULIN LISPRO 100 UNITS/ML SUBCUT SCH ×4 (07:50→21:14)
[2016-12-22 08:00] VITALS: BP 135/85
[2016-12-22] MEDS: IPRATROPIUM/ALBUTEROL 0.5-3(2.5)MG/3ML NEB HHN SCH ×4 (08:03→20:39)
[2016-12-22 08:59] LABS: BG CARBOXYHEMOGLOBIN 0.5 % (0.5-1.5); BG DEOXYHEMOGLOBIN 3.8 % (0.0-5.0); BG FRACTION INSPIRED OXYGEN 28; BG HCO3 ACT 25.3 mmol/L (22.0-26.0); BG METHEMOGLOBIN 0.5 % (0.0-1.5); BG OXYGEN SATURATION 96.2 % (92.0-98.5); BG OXYHEMOGLOBIN 95.2 % (94.0-97.0); BG PCO2 75.1 mmHg (35.0-45.0); BG PH 7.146 (7.350-7.450); BG PO2 99.6 mmHg (75.0-100.0); BG SAMPLE SITE RIGHT RADIAL; BG TOTAL HEMOGLOBIN 12.7 g/dL (12.0-18.0); BG VENT MODE NASAL CANNULA
[2016-12-22] MEDS: DILTIAZEM HCL 120MG CAPSULE CD 24HR PO SCH (09:00)
[2016-12-22] MEDS: LIDOCAINE 5% PATCH TOP SCH (09:00)
[2016-12-22] MEDS: CALCIUM ACETATE 667MG CAPSULE PO SCH ×3 (09:17→17:29)
[2016-12-22] MEDS: AZITHROMYCIN 250 MG TABLET PO SCH (09:18)
[2016-12-22] MEDS: RISPERIDONE 0.5MG TABLET PO SCH ×2 (09:18→17:29)
[2016-12-22] MEDS: MIDODRINE HCL 5MG TABLET PO SCH ×3 (09:18→17:29)
[2016-12-22] MEDS ORDERED: HYDROCODONE/ACETAMINOPHEN 5/325MG TABLET PO PRN (09:30)
[2016-12-22 12:00] VITALS: BP 129/67
[2016-12-22 16:00] VITALS: BP 132/85
[2016-12-22] MEDS: BUDESONIDE 0.5MG/2ML NEB HHN SCH ×2 (16:03→20:39)
[2016-12-22] MEDS: HYDROCODONE/ACETAMINOPHEN 5/325MG TABLET PO PRN ×2 (17:36→21:14)
[2016-12-22 20:00] VITALS: BP 131/69
[2016-12-22 20:42] LABS: PLATELET ESTIMATE DECREASED
[2016-12-23] VITALS: BP 129/75
[2016-12-23] MEDS: IPRATROPIUM/ALBUTEROL 0.5-3(2.5)MG/3ML NEB HHN SCH ×6 (00:53→20:26)
[2016-12-23 04:00] VITALS: BP 122/87
[2016-12-23] MEDS: METHYLPREDNISOLONE SOD SUCC 125 MG/2 ML VIAL IV SCH ×3 (04:31→17:47)
[2016-12-23] MEDS: HYDROCODONE/ACETAMINOPHEN 5/325MG TABLET PO PRN ×2 (04:31→13:19)
[2016-12-23] MEDS: BLOOD SUGAR DIAGNOSTIC STRIP TEST SCH ×4 (06:23→21:05)
[2016-12-23 06:32] LABS: HEMATOCRIT. 36.3 % (36.0-48.0); HEMOGLOBIN. 11.6 g/dL (12.0-16.0); MEAN CORPUSCULAR HEMOGLOBIN 32.3 pg (28.0-32.0); MEAN CORPUSCULAR VOLUME 100.9 fL (81.0-99.0); MEAN PLATELET VOLUME 8.8 fl (7.4-10.4); PLATELET 105 x1000/uL (130-400)
[2016-12-23] MEDS: RISPERIDONE 0.5MG TABLET PO SCH ×2 (08:24→17:47)
[2016-12-23] MEDS: CALCIUM ACETATE 667MG CAPSULE PO SCH ×3 (08:24→17:47)
[2016-12-23] MEDS: AZITHROMYCIN 250 MG TABLET PO SCH (08:24)
[2016-12-23] MEDS: DILTIAZEM HCL 120MG CAPSULE CD 24HR PO SCH (08:25)
[2016-12-23] MEDS: MIDODRINE HCL 5MG TABLET PO SCH ×3 (08:25→17:47)
[2016-12-23] MEDS: LIDOCAINE 5% PATCH TOP SCH (08:25)
[2016-12-23] MEDS: INSULIN LISPRO 100 UNITS/ML SUBCUT SCH ×4 (08:28→21:19)
[2016-12-23 08:30] VITALS: BP 126/82
[2016-12-23] MEDS: BUDESONIDE 0.5MG/2ML NEB HHN SCH ×2 (10:01→20:27)
[2016-12-23 10:21] LABS: BG BASE EXCESS -2.2 mmol/L (-2.0-2.0); BG CARBOXYHEMOGLOBIN 0.7 % (0.5-1.5); BG DEOXYHEMOGLOBIN 5.2 % (0.0-5.0); BG FRACTION INSPIRED OXYGEN 28; BG HCO3 ACT 26.9 mmol/L (22.0-26.0); BG METHEMOGLOBIN 0.2 % (0.0-1.5); BG OXYGEN SATURATION 94.8 % (92.0-98.5); BG OXYHEMOGLOBIN 93.9 % (94.0-97.0); BG PCO2 67.9 mmHg (35.0-45.0); BG PH 7.216 (7.350-7.450); BG PO2 85.4 mmHg (75.0-100.0); BG SAMPLE SITE RIGHT RADIAL; BG TOTAL HEMOGLOBIN 12.9 g/dL (12.0-18.0); BG VENT MODE NASAL CANNULA
[2016-12-23 12:30] VITALS: BP 126/78
[2016-12-23 13:03] LABS: NUCLEATED RED BLOOD CELLS 1 /100 WBC; PLATELET ESTIMATE DECREASED
[2016-12-23] MEDS ORDERED: HYDROCODONE/ACETAMINOPHEN 10/325MG TABLET PO PRN (13:45)
[2016-12-23] MEDS ORDERED: LORAZEPAM 0.5MG TABLET PO PRN (14:15)
[2016-12-23] MEDS ORDERED: MORPHINE SULFATE 4 MG/ML CPJ (NOT FOR IM USE) IV PRN (14:15)
[2016-12-23 16:30] VITALS: BP 124/84
[2016-12-23 20:00] VITALS: BP 122/85
[2016-12-24] MEDS: IPRATROPIUM/ALBUTEROL 0.5-3(2.5)MG/3ML NEB HHN SCH ×3 (00:12→09:15)
[2016-12-24] MEDS: METHYLPREDNISOLONE SOD SUCC 125 MG/2 ML VIAL IV SCH (02:57)
[2016-12-24 04:00] VITALS: BP 125/83
[2016-12-24 06:53] LABS: HEMATOCRIT. 35.5 % (36.0-48.0); HEMOGLOBIN. 11.5 g/dL (12.0-16.0); MEAN CORPUSCULAR HEMOGLOBIN 32.4 pg (28.0-32.0); MEAN CORPUSCULAR VOLUME 99.9 fL (81.0-99.0); MEAN PLATELET VOLUME 8.5 fl (7.4-10.4); PLATELET 101 x1000/uL (130-400); RED BLOOD CELL COUNT 3.56 mill/uL (4.2-5.4); RED CELL DISTRIBUTION WIDTH 16.6 % (11.6-14.6)
[2016-12-24] MEDS: INSULIN LISPRO 100 UNITS/ML SUBCUT SCH (07:28)
[2016-12-24] MEDS: BLOOD SUGAR DIAGNOSTIC STRIP TEST SCH (07:28)
[2016-12-24 07:46] VITALS: BP 136/92
[2016-12-24] MEDS ORDERED: LIDOCAINE HCL/PF 1% 2ML VIAL ONE (08:58)
[2016-12-24] MEDS: LIDOCAINE 5% PATCH TOP SCH (09:00)
[2016-12-24] MEDS: BUDESONIDE 0.5MG/2ML NEB HHN SCH (09:15)
[2016-12-24] MEDS: CALCIUM ACETATE 667MG CAPSULE PO SCH (09:18)
[2016-12-24] MEDS: MIDODRINE HCL 5MG TABLET PO SCH (09:18)
[2016-12-24] MEDS: RISPERIDONE 0.5MG TABLET PO SCH (09:18)
[2016-12-24] MEDS: DILTIAZEM HCL 120MG CAPSULE CD 24HR PO SCH (09:19)
[2016-12-24] MEDS: AZITHROMYCIN 250 MG TABLET PO SCH (09:19)
[2016-12-24 11:09] LABS: BG BASE EXCESS -0.9 mmol/L (-2.0-2.0); BG CARBOXYHEMOGLOBIN 0.4 % (0.5-1.5); BG DEOXYHEMOGLOBIN 4.7 % (0.0-5.0); BG FRACTION INSPIRED OXYGEN 28; BG HCO3 ACT 28.1 mmol/L (22.0-26.0); BG METHEMOGLOBIN 0.2 % (0.0-1.5); BG OXYGEN SATURATION 95.3 % (92.0-98.5); BG OXYHEMOGLOBIN 94.7 % (94.0-97.0); BG PCO2 68.2 mmHg (35.0-45.0); BG PH 7.233 (7.350-7.450); BG PO2 87.7 mmHg (75.0-100.0); BG SAMPLE SITE RIGHT RADIAL; BG TOTAL HEMOGLOBIN 12.9 g/dL (12.0-18.0); BG VENT MODE NASAL CANNULA
[2016-12-24 13:01] LABS: PLATELET ESTIMATE DECREASED
== END 2016-12-24 11:30 | disposition home or self-care (01) | DRG 133 ==
LOC: ER 12:06 → 6WST 12:31 → EDBEDREQTM 12:41 → EDBEDREQ 12:41 → ENRESERV 13:21
PROVIDERS: ADMIT Internal Medicine; ATTEND Internal Medicine
PROC: 5A09457 Assistance with Respiratory Ventilation, 24-96 Consecutive Hours, Continuous Positive Airway Pressure (ICD-10-PCS; principal; 2016-12-21)
DX: J96.22 Acute and chronic respiratory failure with hypercapnia (principal); I50.33 Acute on chronic diastolic (congestive) heart failure; I27.2 Other secondary pulmonary hypertension; N18.6 End stage renal disease; D69.6 Thrombocytopenia, unspecified; I95.9 Hypotension, unspecified; J44.0 Chronic obstructive pulmonary disease with (acute) lower respiratory infection; E87.5 Hyperkalemia; I13.2 Hypertensive heart and chronic kidney disease with heart failure and with stage 5 chronic kidney disease, or end stage renal disease; J20.9 Acute bronchitis, unspecified; Z99.2 Dependence on renal dialysis; D63.8 Anemia in other chronic diseases classified elsewhere; G89.29 Other chronic pain; I25.10 Atherosclerotic heart disease of native coronary artery without angina pectoris; I35.0 Nonrheumatic aortic (valve) stenosis; Z95.2 Presence of prosthetic heart valve; Z87.891 Personal history of nicotine dependence; F31.9 Bipolar disorder, unspecified; Z79.899 Other long term (current) drug therapy; M54.5 Low back pain; J44.1 Chronic obstructive pulmonary disease with (acute) exacerbation
CPT/HCPCS: 36415; 36600; 71010; 71250; 80048; 80053; 82375; 82805; 82962; 83880; 84484; 84703; 85025; 85610; 93005; 93306; 93970; 94640; 94660; 94664; 97162; 99285; A6261; J1170; J1200; J1815; J2270; J2930; J3490; J7030; J7611; J7620; J7626; Q0169

== ENCOUNTER 2017-11-06 08:52 | Inpatient (IN) | payer MEDICAID ==
[~2017-11-06] VITALS: Ht 165.1 cm; Wt 77.2 kg
[~2017-11-06 08:52] MED LIST changes: +ALBU6.7H INH; -DILT120C11 PO; +FLUT1AER IH; +FLUT1DIS3 IH; -LIDO700A30 TOP; -MIDO5TAB PO; -[UNRECOGNIZED DRUG - OTHER] PO
[2017-11-06] MEDS ORDERED: MIDAZOLAM HCL 2 MG/2 ML VIAL IV ONE (09:15)
[2017-11-06] MEDS ORDERED: MORPHINE SULFATE 4 MG/ML CPJ (NOT FOR IM USE) IV ONE ×2 (09:15→09:30)
[2017-11-06] MEDS ORDERED: ONDANSETRON HCL 4MG/2ML VIAL IV ONE (09:30)
[2017-11-06] MEDS ORDERED: DIPHENHYDRAMINE 50MG/ML VIAL IV ONE (09:30)
[2017-11-06] MEDS ORDERED: SODIUM CHLORIDE 0.9% 500 ML IV ONE (11:15)
[2017-11-06 11:46] LABS: BASOPHILS % 1.2 % (0.0-2.0); EOSINOPHILS % 0.9 % (0.0-5.0); HEMOGLOBIN. 12.7 g/dL (12.0-16.0); LYMPHOCYTES % 12.3 % (20.0-50.0); MEAN CORPUSCULAR HEMOGLOBIN 30.3 pg (28.0-32.0); MEAN PLATELET VOLUME 8.6 fl (7.4-10.4); MONOCYTES % 14.1 % (2.0-8.0); NEUTROPHILS % 71.5 % (40.0-76.0); PLATELET 152 x1000/uL (130-400); RED BLOOD CELL COUNT 4.19 mill/uL (4.2-5.4); RED CELL DISTRIBUTION WIDTH 18.4 % (11.6-14.6)
[2017-11-06 11:53] LABS: CHLORIDE 103 mEq/L (98-107)
[2017-11-06 12:08] LABS: HCG SCREEN NEGATIVE
[2017-11-06 12:48] LABS: INR 1.3; PROTHROMBIN TIME 12.9 sec (9.1-11.1)
[2017-11-06] MEDS ORDERED: CLONIDINE 0.1MG TABLET PO PRN (13:00)
[2017-11-06] MEDS ORDERED: ONDANSETRON HCL 4MG/2ML VIAL IV PRN (13:00)
[2017-11-06] MEDS ORDERED: IPRATROPIUM/ALBUTEROL 0.5-3(2.5)MG/3ML NEB INH PRN (13:00)
[2017-11-06] MEDS ORDERED: DIPHENHYDRAMINE 50MG/ML VIAL IV PRN (13:00)
[2017-11-06] MEDS: MORPHINE SULFATE 4 MG/ML CPJ (NOT FOR IM USE) IV PRN ×2 (16:51→21:08)
[2017-11-06] MEDS: DILTIAZEM HCL 30MG TABLET PO SCH ×2 (17:00→22:00)
[2017-11-06 17:42] VITALS: BP 98/69
[2017-11-06 17:49] VITALS: BP 98/69
[2017-11-06 20:00] VITALS: BP 94/48
[2017-11-07] VITALS: BP 97/49
[2017-11-07] MEDS: MORPHINE SULFATE 4 MG/ML CPJ (NOT FOR IM USE) IV PRN ×4 (02:31→19:55)
[2017-11-07 03:36] LABS: HEMATOCRIT. 37.9 % (36.0-48.0); HEMOGLOBIN. 11.7 g/dL (12.0-16.0); MEAN CORPUSCULAR HEMOGLOBIN 30.2 pg (28.0-32.0); MEAN CORPUSCULAR VOLUME 97.9 fL (81.0-99.0); MEAN PLATELET VOLUME 8.3 fl (7.4-10.4); PLATELET 161 x1000/uL (130-400); RED BLOOD CELL COUNT 3.87 mill/uL (4.2-5.4); RED CELL DISTRIBUTION WIDTH 18.4 % (11.6-14.6)
[2017-11-07 03:40] LABS: CHLORIDE 101 mEq/L (98-107)
[2017-11-07 03:50] LABS: LDL CHOLESTEROL 29 mg/dL (5-100)
[2017-11-07 03:51] LABS: HDL CHOLESTEROL 36 mg/dL (40-59)
[2017-11-07 04:00] VITALS: BP 91/58
[2017-11-07 05:28] LABS: PLATELET ESTIMATE NORMAL
[2017-11-07] MEDS: DILTIAZEM HCL 30MG TABLET PO SCH ×3 (06:00→21:39)
[2017-11-07 07:27] VITALS: BP 104/67
[2017-11-07 12:00] VITALS: BP 94/53
[2017-11-07 16:00] VITALS: BP 90/58
[2017-11-07 20:00] VITALS: BP 93/57
[2017-11-08] VITALS (10 sets, daily range): BP systolic 90–106; BP diastolic 45–74
[2017-11-08] MEDS: MORPHINE SULFATE 4 MG/ML CPJ (NOT FOR IM USE) IV PRN ×5 (02:10→20:28)
[2017-11-08] MEDS: DILTIAZEM HCL 30MG TABLET PO SCH ×3 (06:00→22:00)
[2017-11-08 07:00] LABS: HEMATOCRIT. 36.3 % (36.0-48.0); HEMOGLOBIN. 11.2 g/dL (12.0-16.0); MEAN CORPUSCULAR HEMOGLOBIN 30.1 pg (28.0-32.0); MEAN CORPUSCULAR VOLUME 97.2 fL (81.0-99.0); MEAN PLATELET VOLUME 9.9 fl (7.4-10.4); PLATELET 141 x1000/uL (130-400); RED BLOOD CELL COUNT 3.74 mill/uL (4.2-5.4); RED CELL DISTRIBUTION WIDTH 18.1 % (11.6-14.6)
[2017-11-08 14:07] LABS: PLATELET ESTIMATE NORMAL
[2017-11-08] MEDS ORDERED: HEPARIN SODIUM 1,000 UNIT/1ML VIAL IV NR (17:30)
[2017-11-09] VITALS: BP 110/71
[2017-11-09] MEDS: MORPHINE SULFATE 4 MG/ML CPJ (NOT FOR IM USE) IV PRN ×2 (00:36→06:17)
[2017-11-09] MEDS: DILTIAZEM HCL 30MG TABLET PO SCH ×4 (01:58→22:00)
[2017-11-09 04:00] VITALS: BP 98/57
[2017-11-09 06:48] LABS: HEMATOCRIT. 37.2 % (36.0-48.0); HEMOGLOBIN. 11.7 g/dL (12.0-16.0); MEAN CORPUSCULAR HEMOGLOBIN 30.4 pg (28.0-32.0); MEAN CORPUSCULAR VOLUME 96.9 fL (81.0-99.0); MEAN PLATELET VOLUME 9.1 fl (7.4-10.4); PLATELET 138 x1000/uL (130-400); RED BLOOD CELL COUNT 3.84 mill/uL (4.2-5.4); RED CELL DISTRIBUTION WIDTH 18.2 % (11.6-14.6)
[2017-11-09 08:00] VITALS: BP 87/63
[2017-11-09 11:30] VITALS: BP 89/63
[2017-11-09] MEDS: ACETAMINOPHEN 325MG TABLET PO PRN ×2 (11:39→21:36)
[2017-11-09] MEDS: MIDODRINE HCL 5MG TABLET PO SCH ×2 (13:00→15:22)
[2017-11-09 14:14] LABS: PLATELET ESTIMATE NORMAL
[2017-11-09 16:00] VITALS: BP 90/57
[2017-11-09] MEDS: HYDROCODONE/ACETAMINOPHEN 5/325MG TABLET PO PRN (16:41)
[2017-11-09 20:00] VITALS: BP 89/59
[2017-11-10] VITALS: BP 88/54
[2017-11-10 04:00] VITALS: BP 88/56
[2017-11-10] MEDS: DILTIAZEM HCL 30MG TABLET PO SCH ×2 (05:37→13:43)
[2017-11-10] MEDS: ACETAMINOPHEN 325MG TABLET PO PRN (05:37)
[2017-11-10 05:54] LABS: BASOPHILS % 1.4 % (0.0-2.0); EOSINOPHILS % 8.1 % (0.0-5.0); HEMATOCRIT. 36.4 % (36.0-48.0); HEMOGLOBIN. 11.6 g/dL (12.0-16.0); LYMPHOCYTES % 14.3 % (20.0-50.0); MEAN CORPUSCULAR HEMOGLOBIN 30.4 pg (28.0-32.0); MEAN CORPUSCULAR VOLUME 95.9 fL (81.0-99.0); MEAN PLATELET VOLUME 8.8 fl (7.4-10.4); MONOCYTES % 14.2 % (2.0-8.0); PLATELET 150 x1000/uL (130-400); RED CELL DISTRIBUTION WIDTH 18.2 % (11.6-14.6)
[2017-11-10] MEDS: HYDROCODONE/ACETAMINOPHEN 5/325MG TABLET PO PRN ×2 (06:58→10:10)
[2017-11-10] MEDS: MIDODRINE HCL 5MG TABLET PO SCH ×2 (07:46→13:43)
[2017-11-10 08:00] VITALS: BP 95/53
[2017-11-10] MEDS ORDERED: HEPARIN SODIUM 1,000 UNIT/1ML VIAL IV NR (08:00)
[2017-11-10 12:05] VITALS: BP 90/52
[2017-11-10] MEDS ORDERED: MIDO5TAB PO (13:14)
[2017-11-10] MEDS ORDERED: DILT30TA38 PO (13:14)
[2017-11-10] MEDS ORDERED: HYDROCODONE/ACETAMINOPHEN 5/325MG TABLET PO PRN (13:30)
[2017-11-10 16:01] VITALS: BP 94/69
== END 2017-11-10 17:22 | disposition home or self-care (01) | DRG 201 ==
LOC: ER 09:20 → EDBEDREQ 12:49 → 7WST 13:50 → OBSVTOIN 13:50 → ENRESERV 13:50
PROVIDERS: ADMIT Internal Medicine; ATTEND Internal Medicine
PROC: 5A2204Z Restoration of Cardiac Rhythm, Single (ICD-10-PCS; principal; 2017-11-06)
PROC: 5A1D70Z Performance of Urinary Filtration, Intermittent, Less than 6 Hours Per Day (ICD-10-PCS; 2017-11-07)
DX: I47.1 Supraventricular tachycardia (principal); I13.2 Hypertensive heart and chronic kidney disease with heart failure and with stage 5 chronic kidney disease, or end stage renal disease; J96.11 Chronic respiratory failure with hypoxia; J96.12 Chronic respiratory failure with hypercapnia; N18.6 End stage renal disease; I31.3 Pericardial effusion (noninflammatory); I95.9 Hypotension, unspecified; D69.6 Thrombocytopenia, unspecified; R55 Syncope and collapse; I05.2 Rheumatic mitral stenosis with insufficiency; I27.20 Pulmonary hypertension, unspecified; R07.9 Chest pain, unspecified; F31.9 Bipolar disorder, unspecified; G89.4 Chronic pain syndrome; J44.9 Chronic obstructive pulmonary disease, unspecified; M51.36 Other intervertebral disc degeneration, lumbar region; M48.8X6 Other specified spondylopathies, lumbar region; K75.9 Inflammatory liver disease, unspecified; I50.9 Heart failure, unspecified; I73.9 Peripheral vascular disease, unspecified; N63.0 Unspecified lump in unspecified breast; I48.92 Unspecified atrial flutter; I48.0 Paroxysmal atrial fibrillation; L97.429 Non-pressure chronic ulcer of left heel and midfoot with unspecified severity; L97.829 Non-pressure chronic ulcer of other part of left lower leg with unspecified severity; Z99.2 Dependence on renal dialysis
CPT/HCPCS: 36415; 71045; 80048; 80053; 80061; 84443; 84484; 84703; 85025; 85610; 93005; 93306; 93923; 97162; J1200; J1644; J2250; J2270; J7030; J7040

== ENCOUNTER 2018-01-15 12:37 | Inpatient (IN) | payer MEDICAID ==
[~2018-01-15] VITALS: Ht 167.6 cm; Wt 76.7 kg
[2018-01-15] VITALS (7 sets, daily range): BP systolic 96–110; BP diastolic 49–75
[~2018-01-15 12:37] MED LIST changes: +DILT30TA38 PO; +MIDO5TAB PO
[2018-01-15] MEDS ORDERED: MIDODRINE HCL 5MG TABLET PO ONE (13:30)
[2018-01-15] MEDS ORDERED: CEFAZOLIN 1000MG PREMIX 50 ML IV ONE (13:30)
[2018-01-15] MEDS ORDERED: ONDANSETRON HCL 4MG/2ML INJ IV ONE (13:30)
[2018-01-15] MEDS ORDERED: FENTANYL CITRATE/PF 50MCG/ML 2ML VIAL IV ONE (13:30)
[2018-01-15 13:58] LABS: BG BASE EXCESS -2.9 mmol/L (-2.0-2.0); BG CARBOXYHEMOGLOBIN 1.4 % (0.5-1.5); BG DEOXYHEMOGLOBIN 11.9 % (0.0-5.0); BG HCO3 ACT 23.1 mmol/L (22.0-26.0); BG METHEMOGLOBIN 0.2 % (0.0-1.5); BG OXYGEN SATURATION 87.9 % (92.0-98.5); BG OXYHEMOGLOBIN 86.5 % (94.0-97.0); BG PCO2 44.9 mmHg (35.0-45.0); BG PH 7.329 (7.350-7.450); BG PO2 57.7 mmHg (75.0-100.0); BG SAMPLE SITE RIGHT BRACHIAL; BG TOTAL HEMOGLOBIN 11.6 g/dL (12.0-18.0); BG VENT MODE ROOM AIR
[2018-01-15 15:15] LABS: CHLORIDE 99 mEq/L (98-107)
[2018-01-15 15:16] LABS: HEMATOCRIT. 33.5 % (36.0-48.0); HEMOGLOBIN. 10.7 g/dL (12.0-16.0); MEAN CORPUSCULAR HEMOGLOBIN 32.7 pg (28.0-32.0); MEAN CORPUSCULAR VOLUME 102.6 fL (81.0-99.0); MEAN PLATELET VOLUME 8.2 fl (7.4-10.4); PLATELET 160 x1000/uL (130-400); RED BLOOD CELL COUNT 3.27 mill/uL (4.2-5.4); RED CELL DISTRIBUTION WIDTH 18.9 % (11.6-14.6)
[2018-01-15 15:20] LABS: PHOSPHORUS 5.4 mg/dL (2.5-4.9)
[2018-01-15] MEDS ORDERED: LIDOCAINE HCL/PF 1% 2ML VIAL ONE (15:44)
[2018-01-15] MEDS ORDERED: MIDO10TA MT (17:01)
[2018-01-15] MEDS ORDERED: MEDICATION NOT ON FORMULARY EA (Midodrine Hcl 1 TAB) MT SCH (18:00)
[2018-01-15] MEDS ORDERED: ONDANSETRON HCL 4MG/2ML INJ IM PRN (18:00)
[2018-01-15] MEDS: MORPHINE SULFATE 4 MG/ML CPJ (NOT FOR IM USE) IV PRN (18:09)
[2018-01-15] MEDS: MIDODRINE HCL 5MG TABLET PO SCH (18:18)
[2018-01-15 21:38] LABS: PLATELET ESTIMATE NORMAL
[2018-01-16] VITALS (10 sets, daily range): BP systolic 70–95; BP diastolic 33–69
[2018-01-16] MEDS: MORPHINE SULFATE 4 MG/ML CPJ (NOT FOR IM USE) IV PRN ×2 (02:37→06:36)
[2018-01-16 06:07] LABS: BASOPHILS % 1.4 % (0.0-2.0); EOSINOPHILS % 4.5 % (0.0-5.0); HEMATOCRIT. 30.6 % (36.0-48.0); LYMPHOCYTES % 12.1 % (20.0-50.0); MEAN CORPUSCULAR HEMOGLOBIN 33.1 pg (28.0-32.0); MEAN CORPUSCULAR VOLUME 101.7 fL (81.0-99.0); MEAN PLATELET VOLUME 8.4 fl (7.4-10.4); MONOCYTES % 12.7 % (2.0-8.0); NEUTROPHILS % 69.3 % (40.0-76.0); PLATELET 167 x1000/uL (130-400); RED BLOOD CELL COUNT 3.01 mill/uL (4.2-5.4); RED CELL DISTRIBUTION WIDTH 18.5 % (11.6-14.6)
[2018-01-16] MEDS: MIDODRINE HCL 5MG TABLET PO SCH ×3 (07:53→18:31)
[2018-01-16] MEDS: ACETAMINOPHEN 325MG TABLET PO PRN (15:20)
[2018-01-16] MEDS: HYDROCODONE/ACETAMINOPHEN 5/325MG TABLET PO PRN ×2 (16:41→20:50)
[2018-01-16] MEDS ORDERED: MEDICATION NOT ON FORMULARY EA (Midodrine Hcl 10 MG) PO SCH (21:00)
[2018-01-16] MEDS: RISPERIDONE 0.5MG TABLET PO SCH (21:05)
[2018-01-16] MEDS ORDERED: DILTIAZEM HCL 30MG TABLET PO SCH (22:00)
[2018-01-17] VITALS (10 sets, daily range): BP systolic 80–95; BP diastolic 51–69
[2018-01-17] MEDS: HYDROCODONE/ACETAMINOPHEN 5/325MG TABLET PO PRN ×5 (03:39→21:05)
[2018-01-17] MEDS: RISPERIDONE 0.5MG TABLET PO SCH ×2 (09:00→21:00)
[2018-01-17] MEDS: MIDODRINE HCL 5MG TABLET PO SCH ×3 (09:18→16:12)
[2018-01-17] MEDS: MORPHINE SULFATE 4 MG/ML CPJ (NOT FOR IM USE) IV PRN (17:43)
[2018-01-17] MEDS: ACETAMINOPHEN 325MG TABLET PO PRN (22:43)
[2018-01-18] VITALS (9 sets, daily range): BP systolic 70–101; BP diastolic 50–68
[2018-01-18] MEDS: HYDROCODONE/ACETAMINOPHEN 5/325MG TABLET PO PRN ×3 (05:03→15:39)
[2018-01-18] MEDS: ACETAMINOPHEN 325MG TABLET PO PRN ×2 (06:32→11:28)
[2018-01-18] MEDS: MIDODRINE HCL 5MG TABLET PO SCH ×3 (08:59→17:25)
[2018-01-18] MEDS: RISPERIDONE 0.5MG TABLET PO SCH (09:00)
[2018-01-18] MEDS: MORPHINE SULFATE 4 MG/ML CPJ (NOT FOR IM USE) IV PRN (15:30)
== END 2018-01-18 18:08 | disposition home or self-care (01) | DRG 180 ==
LOC: ER 12:43 → 3WST 13:40 → EDBEDREQ 13:46 → EDBEDREQTM 13:46 → ENRESERV 13:53
PROVIDERS: ADMIT Internal Medicine; ATTEND Internal Medicine
PROC: 0Y3J3ZZ Control Bleeding in Left Lower Leg, Percutaneous Approach (ICD-10-PCS; principal; 2018-01-15)
PROC: 5A1D70Z Performance of Urinary Filtration, Intermittent, Less than 6 Hours Per Day (ICD-10-PCS; 2018-01-16)
DX: I95.89 Other hypotension (principal); I13.2 Hypertensive heart and chronic kidney disease with heart failure and with stage 5 chronic kidney disease, or end stage renal disease; J96.11 Chronic respiratory failure with hypoxia; L89.893 Pressure ulcer of other site, stage 3; D62 Acute posthemorrhagic anemia; J96.12 Chronic respiratory failure with hypercapnia; N18.6 End stage renal disease; L97.929 Non-pressure chronic ulcer of unspecified part of left lower leg with unspecified severity; I95.3 Hypotension of hemodialysis; I50.9 Heart failure, unspecified; J44.9 Chronic obstructive pulmonary disease, unspecified; G89.4 Chronic pain syndrome; F31.9 Bipolar disorder, unspecified; I73.9 Peripheral vascular disease, unspecified; Z87.891 Personal history of nicotine dependence; Z99.2 Dependence on renal dialysis; M51.36 Other intervertebral disc degeneration, lumbar region; M54.9 Dorsalgia, unspecified; Z79.899 Other long term (current) drug therapy
CPT/HCPCS: 36415; 36600; 71045; 80048; 82375; 82805; 83735; 83880; 84100; 84484; 86850; 86900; 86920; 93005; 93923; 93970; 96374; 96375; 99291; J0690; J2270; J2405; J3010; J3490; J7030